=== PATIENT | female | born 1970 ===

== ENCOUNTER 2025-09-11 06:26 | Day surgery (SDC) | payer BC, SELFPAY | END 2025-09-11 10:52 | disposition home or self-care (01) | LOC: GI 06:26 | PROVIDERS: ATTENDING PHYSICIAN Internal Medicine Gastroenterology | DX: R93.3 Abnormal findings on diagnostic imaging of other parts of digestive tract (principal); K64.8 Other hemorrhoids; K63.89 Other specified diseases of intestine; D49.0 Neoplasm of unspecified behavior of digestive system; K44.9 Diaphragmatic hernia without obstruction or gangrene; Q40.2 Other specified congenital malformations of stomach; K20.90 Esophagitis, unspecified without bleeding; K31.89 Other diseases of stomach and duodenum; K22.89 Other specified disease of esophagus; D12.0 Benign neoplasm of cecum; D12.2 Benign neoplasm of ascending colon; C18.2 Malignant neoplasm of ascending colon | CPT/HCPCS: 45385; 45380; 43239; 88305; 88341; 88342 ==